=== PATIENT | male | born 1950 | race Caucasian/White ===

== ENCOUNTER 2016-12-08 06:02 | Day surgery (SDC) | payer MEDICARE, OTHER ==
[~2016-12-08] VITALS: Ht 172.7 cm; Wt 65.0 kg
[~2016-12-08 06:02] MED LIST: AZIT250T89 PO; CEFD300C37 PO; FLUT9.9S NS; GUAI118L19 PO; LACT1CAP24 PO; LORA-702 PO
[2016-12-08 07:23] VITALS: BP 103/65
[2016-12-08] MEDS ORDERED: SODIUM CHLORIDE 0.9% 1,000 ML IV SCH (07:25)
[2016-12-08] MEDS ORDERED: FENTANYL PF 100 MCG/2ML ONE (07:33)
[2016-12-08] MEDS ORDERED: MIDAZOLAM 1 MG/ML, 5ML ONE (07:33)
[2016-12-08] MEDS ORDERED: NALOXONE 1 MG/ML, 2ML ONE (07:33)
[2016-12-08] MEDS ORDERED: FLUMAZENIL 0.1 MG/1 ML, 5ML ONE (07:34)
[2016-12-08 08:31] LABS: DIFF TOTAL CELLS COUNTED 100 CELL DIFF
[2016-12-08 09:54] LABS: ANISOCYTOSIS 1+; VERIFY COUNTS? YES
== END 2016-12-08 09:40 | disposition home or self-care (01) ==
LOC: OUT 06:02
PROVIDERS: ATTEND Internal Medicine Hematology & Oncology
DX: D46.4 Refractory anemia, unspecified (principal)
CPT/HCPCS: 36415; 38221; 77012; 85025; 85097; 88237; 88264; 88280; 88305; 88311; 88313; 99156; 99157; G0364; J2250; J3010; J7030; J2310

== ENCOUNTER → 2017-08-23 | Outpatient (CLI) | payer MEDICARE, OTHER | END | disposition home or self-care (01) | LOC: CARD 15:46 | PROVIDERS: ATTEND Internal Medicine Hematology & Oncology | DX: D64.9 Anemia, unspecified (principal) | CPT/HCPCS: 94642 ==

== ENCOUNTER → 2017-09-20 | Outpatient (CLI) | payer MEDICARE, OTHER ==
[~2017-09-20] MED LIST changes: +PENTAMIDINE 300 MG ONE
== END | disposition home or self-care (01) ==
LOC: CARD 12:26
PROVIDERS: ATTEND Internal Medicine Hematology & Oncology
DX: D46.9 Myelodysplastic syndrome, unspecified (principal)
CPT/HCPCS: 94642

== ENCOUNTER → 2017-10-18 | Outpatient (CLI) | payer MEDICARE, OTHER | END | disposition home or self-care (01) | LOC: CARD 12:15 | PROVIDERS: ATTEND Internal Medicine Hematology & Oncology | DX: D46.9 Myelodysplastic syndrome, unspecified (principal) | CPT/HCPCS: 94642 ==

== ENCOUNTER → 2017-11-20 | Outpatient (CLI) | payer MEDICARE, OTHER | LOC: CARD 12:49 | PROVIDERS: ATTEND Internal Medicine Hematology & Oncology | DX: D46.9 Myelodysplastic syndrome, unspecified (principal) | CPT/HCPCS: 94642 ==

== ENCOUNTER → 2017-12-19 | Outpatient (CLI) | payer MEDICARE, OTHER ==
[~2017-12-19] MED LIST changes: +ACYC800T4 PO; +AZEL137S4 NAS; +GUAI-103 PO; +MULT-516 PO; +SORA200T PO; +VITAMIN C PO; +VITAMIN D PO; +VORI200T2 PO
== END | disposition home or self-care (01) ==
LOC: CARD 12:48
PROVIDERS: ATTEND Internal Medicine Hematology & Oncology
DX: D46.9 Myelodysplastic syndrome, unspecified (principal); J18.9 Pneumonia, unspecified organism; J20.9 Acute bronchitis, unspecified; J47.9 Bronchiectasis, uncomplicated; R06.02 Shortness of breath
CPT/HCPCS: 94642

== ENCOUNTER → 2018-01-17 | Outpatient (CLI) | payer MEDICARE, OTHER ==
[~2018-01-17] MED LIST changes: -AZEL137S4 NAS; -GUAI-103 PO; -MULT-516 PO; -VITAMIN C PO; -VITAMIN D PO
== END | disposition home or self-care (01) ==
LOC: CARD 12:51
PROVIDERS: ATTEND Internal Medicine Hematology & Oncology
DX: D46.9 Myelodysplastic syndrome, unspecified (principal)
CPT/HCPCS: 94642

== ENCOUNTER → 2018-01-29 | Outpatient (CLI) | payer MEDICARE, OTHER ==
[~2018-01-29] MED LIST changes: -PENTAMIDINE 300 MG ONE
== END | disposition home or self-care (01) ==
LOC: RAD 12:47
PROVIDERS: ATTEND Internal Medicine Critical Care Medicine
DX: J98.11 Atelectasis (principal); J47.9 Bronchiectasis, uncomplicated; R91.8 Other nonspecific abnormal finding of lung field; R06.02 Shortness of breath
CPT/HCPCS: 71250

== ENCOUNTER 2018-02-06 08:05 | Day surgery (SDC) | payer MEDICARE, OTHER ==
[2018-02-05 09:46] LABS: BASOPHILS # (AUTO) 0.01 x10^3/uL (0-0.1); BASOPHILS % (AUTO) 0 % (0-1); EOSINOPHILS % (AUTO) 6 % (1-7); LYMPHOCYTES % (AUTO) 8 % (22-44); MD NO; MEAN CORPUSCULAR HGB CONC 33.6 g/dL (33.2-36.2); MEAN CORPUSCULAR VOLUME 101.1 fL (81-97); MEAN PLATELET VOLUME 8.5 fL (7.4-10.4); MONOCYTES % (AUTO) 11 % (2-9); NEUTROPHILS # (AUTO) 3.51 x10^3/uL (1.8-6.8); NEUTROPHILS % (AUTO) 74 % (42-75); PLATELET COUNT 120 x10^3/uL (130-400); RED BLOOD COUNT 3.55 x10^6/uL (4.38-5.82); RED CELL DISTRIBUTION WIDTH 16.8 % (9.4-14.8)
[2018-02-05 09:54] LABS: INTERNATIONAL NORMALIZED RATIO 0.92 (0.93-1.1); PROTHROMBIN TIME 9.6 Seconds (9.6-11.5)
[~2018-02-06] VITALS: Ht 171.4 cm; Wt 62.4 kg
[~2018-02-06 08:05] MED LIST changes: +AZEL137S4 NAS; +GUAI-103 PO; +LIDOCAINE 4% TOPICAL SOLUTION 50 ML ONE; +LIDOCAINE GEL 2%, 5ML ONE; +MULT-516 PO; +VITAMIN C PO; +VITAMIN D PO
[2018-02-06 08:50] VITALS: BP 101/66
[2018-02-06] MEDS ORDERED: SODIUM CHLORIDE 0.9% 1,000 ML IV SCH (08:50)
[2018-02-06] MEDS ORDERED: MIDAZOLAM 1 MG/ML, 5ML ONE ×2 (09:27)
[2018-02-06] MEDS ORDERED: FENTANYL PF 100 MCG/2ML ONE (09:27)
== END 2018-02-06 13:37 ==
LOC: OUT 08:05
PROVIDERS: ATTEND Internal Medicine Critical Care Medicine
DX: J18.9 Pneumonia, unspecified organism (principal); J47.9 Bronchiectasis, uncomplicated; K21.0 Gastro-esophageal reflux disease with esophagitis
CPT/HCPCS: 31623; 31624; 36415; 85025; 85610; 85730; 87015; 87070; 87077; 87102; 87116; 87186; 87205; 87206; 88104; 88108; 88112; 88312; 93005; 99152; 99153; J2250; J3010; J7030

== ENCOUNTER → 2018-02-18 | Outpatient (CLI) | payer MEDICARE, OTHER ==
[~2018-02-18] MED LIST changes: -LIDOCAINE 4% TOPICAL SOLUTION 50 ML ONE; -LIDOCAINE GEL 2%, 5ML ONE
== END | disposition home or self-care (01) ==
LOC: CARD 12:49
PROVIDERS: ATTEND Internal Medicine Hematology & Oncology
DX: D64.9 Anemia, unspecified (principal); K21.9 Gastro-esophageal reflux disease without esophagitis
CPT/HCPCS: 94642

== ENCOUNTER → 2018-03-19 | Outpatient (CLI) | payer MEDICARE, OTHER | END | disposition home or self-care (01) | LOC: CFH 10:37 | PROVIDERS: ATTEND Internal Medicine Critical Care Medicine | DX: R91.8 Other nonspecific abnormal finding of lung field (principal); Z88.8 Allergy status to other drugs, medicaments and biological substances | CPT/HCPCS: 71250 ==

== ENCOUNTER → 2018-03-21 | Outpatient (CLI) | payer MEDICARE, OTHER ==
[~2018-03-21] MED LIST changes: +PENTAMIDINE 300 MG IVPB ONE
== END | disposition home or self-care (01) ==
LOC: CARD 12:03
PROVIDERS: ATTEND Internal Medicine Hematology & Oncology
DX: D46.9 Myelodysplastic syndrome, unspecified (principal); Z87.891 Personal history of nicotine dependence; J18.9 Pneumonia, unspecified organism; J20.9 Acute bronchitis, unspecified
CPT/HCPCS: 94642

== ENCOUNTER → 2018-04-18 | Outpatient (CLI) | payer MEDICARE, OTHER ==
[~2018-04-18] MED LIST changes: -PENTAMIDINE 300 MG IVPB ONE
== END | disposition home or self-care (01) ==
LOC: CARD 13:15
PROVIDERS: ATTEND Internal Medicine Hematology & Oncology
DX: D46.9 Myelodysplastic syndrome, unspecified (principal)
CPT/HCPCS: 94642

== ENCOUNTER 2018-09-22 09:26 | Inpatient (IN) | payer MEDICARE ==
[~2018-09-22] VITALS: Ht 172.7 cm; Wt 61.4 kg
[~2018-09-22 09:26] MED LIST changes: +FURO-93 PO; +POTA10CA PO; +PRED20TA PO; +[UNRECOGNIZED DRUG - OTHER] HOMEMEDPO
--- NOTE | 2018-09-22 10:30 | NUR ---
[employer]ECT[employer] IN PLACE
[2018-09-22] MEDS ORDERED: CEFTRIAXONE PMX 1GM/50ML 50 ML IV ONE (11:00)
[2018-09-22] MEDS ORDERED: AZITHROMYCIN 500 MG in SODIUM CHLORIDE 0.9% 250 ML IV ONE (11:00)
[2018-09-22 11:02] LABS: MICROSCOPIC AUTO
[2018-09-22 11:05] LABS: CULTURE INDICATED? NO
[2018-09-22 11:05] LABS: ALANINE AMINOTRANSFERASE 226 U/L (12-78); ALBUMIN 2.1 g/dL (3.4-5.0); ANION GAP 6 mmol/L (5-15); BASOPHILS % (AUTO) 0 % (0-1); CALCIUM 8.3 mg/dL (8.5-10.1); CHLORIDE 96 mmol/L (98-107); CREATININE 0.65 mg/dL (0.7-1.3); EOSINOPHILS # (AUTO) 0.03 x10^3/uL (0-0.4); EOSINOPHILS % (AUTO) 0 % (1-7); LYMPHOCYTES # (AUTO) 0.21 x10^3/uL (1-3.4); LYMPHOCYTES % (AUTO) 1 % (22-44); MD SCAN; MEAN CORPUSCULAR HEMOGLOBIN 32.2 pg (27.5-34.5); MEAN CORPUSCULAR HGB CONC 34.1 g/dL (33.2-36.2); MEAN CORPUSCULAR VOLUME 94.2 fL (81-97); MEAN PLATELET VOLUME 8.2 fL (7.4-10.4); MONOCYTES # (AUTO) 0.01 x10^3/uL (0.2-0.8); MONOCYTES % (AUTO) 0 % (2-9); NEUTROPHILS % (AUTO) 98 % (42-75); PLATELET COUNT 259 x10^3/uL (130-400); RED BLOOD COUNT 3.54 x10^6/uL (4.38-5.82); RED CELL DISTRIBUTION WIDTH 16.6 % (9.4-14.8)
[2018-09-22] MEDS ORDERED: CEFTRIAXONE PMX 1GM/50ML 50 ML ONE (11:06)
[2018-09-22 11:07] LABS: ALKALINE PHOSPHATASE 87 U/L (45-117); BILIRUBIN,TOTAL 0.5 mg/dL (0.2-1.0); TOTAL PROTEIN 5.7 g/dL (6.4-8.2)
[2018-09-22 11:13] LABS: RAPID INFLUENZA A Negative (Negative); RAPID INFLUENZA B Negative (Negative)
[2018-09-22] MEDS ORDERED: SODIUM CHLORIDE FLUSH 10ML SYR IVF PRN (12:30)
--- NOTE | 2018-09-22 13:02 | NUR ---
Report to LUISA Vitale.
[2018-09-22] MEDS ORDERED: SODIUM CHLORIDE 0.9% 2,000 ML IV SCH (15:06)
[2018-09-22 15:15] VITALS: BP 132/68
[2018-09-22] MEDS ORDERED: VANCOMYCIN PER PHARMACY MC PRN (15:30)
[2018-09-22] MEDS ORDERED: PHARMACOKINETIC MONITORING MC PRN (16:30)
[2018-09-22] MEDS ORDERED: VANCOMYCIN 1,300 MG in SODIUM CHLORIDE 0.9% 250 ML IV SCH (17:00)
[2018-09-22] MEDS: SODIUM CHLORIDE 0.9% 1,000 ML IV SCH (17:33)
[2018-09-22 18:55] VITALS: BP 122/77
[2018-09-22] MEDS: TEMPLATE NON-FORMULARY MED. (Azelastine Hcl Nasal 1 SPRAY) NAS SCH (19:59)
[2018-09-22] MEDS: CEFEPIME 2 GM in DEXTROSE 5% 100 ML IV SCH (19:59)
[2018-09-22] MEDS: ENOXAPARIN 40 MG/0.4 ML SQ SCH (20:00)
[2018-09-22] MEDS: FAMOTIDINE 20 MG TABLET PO SCH (20:00)
[2018-09-23 02:03] VITALS: BP 130/71
[2018-09-23] MEDS: CEFEPIME 2 GM in DEXTROSE 5% 100 ML IV SCH ×3 (03:38→19:55)
[2018-09-23] MEDS: SODIUM CHLORIDE 0.9% 1,000 ML IV SCH ×2 (03:40→15:24)
[2018-09-23 07:29] LABS: MEAN CORPUSCULAR HEMOGLOBIN 30.7 pg (27.5-34.5); MEAN CORPUSCULAR HGB CONC 32.8 g/dL (33.2-36.2); MEAN CORPUSCULAR VOLUME 93.8 fL (81-97); MEAN PLATELET VOLUME 7.9 fL (7.4-10.4); PLATELET COUNT 239 x10^3/uL (130-400); RED CELL DISTRIBUTION WIDTH 17.1 % (9.4-14.8)
[2018-09-23 07:34] LABS: ALANINE AMINOTRANSFERASE 174 U/L (12-78); ALBUMIN 1.9 g/dL (3.4-5.0); ANION GAP 7 mmol/L (5-15); CHLORIDE 100 mmol/L (98-107); CREATININE 0.69 mg/dL (0.7-1.3)
[2018-09-23 07:36] LABS: ALKALINE PHOSPHATASE 74 U/L (45-117); BILIRUBIN,TOTAL 0.6 mg/dL (0.2-1.0); TOTAL PROTEIN 5.4 g/dL (6.4-8.2)
[2018-09-23] MEDS: TEMPLATE NON-FORMULARY MED. (Azelastine Hcl Nasal 1 SPRAY) NAS SCH ×2 (08:12→19:55)
[2018-09-23] MEDS: POTASSIUM CHLORIDE 10 MEQ TABLET.ER PO SCH (08:12)
[2018-09-23] MEDS: FAMOTIDINE 20 MG TABLET PO SCH ×2 (08:12→19:56)
[2018-09-23] MEDS: FLUTICASONE NASAL SPRAY 16GM NAS SCH (08:12)
[2018-09-23 08:17] LABS: BASOPHILS # (AUTO) 0.02 x10^3/uL (0-0.1); BASOPHILS % (AUTO) 0 % (0-1); EOSINOPHILS # (AUTO) 0.03 x10^3/uL (0-0.4); EOSINOPHILS % (AUTO) 0 % (1-7); LYMPHOCYTES # (AUTO) 0.41 x10^3/uL (1-3.4); LYMPHOCYTES % (AUTO) 3 % (22-44); MD SCAN; MONOCYTES # (AUTO) 0.07 x10^3/uL (0.2-0.8); MONOCYTES % (AUTO) 1 % (2-9); NEUTROPHILS # (AUTO) 13.04 x10^3/uL (1.8-6.8); NEUTROPHILS % (AUTO) 96 % (42-75)
[2018-09-23 09:26] VITALS: BP 105/66
[2018-09-23] MEDS ORDERED: AZITHROMYCIN 500 MG in SODIUM CHLORIDE 0.9% 250 ML IV SCH (12:00)
[2018-09-23] MEDS ORDERED: SODIUM CHLORIDE 0.9% 1,000 ML IV SCH (15:06)
[2018-09-23] MEDS: VANCOMYCIN 1,300 MG in SODIUM CHLORIDE 0.9% 250 ML IV SCH (15:24)
[2018-09-23 15:48] VITALS: BP 111/70
[2018-09-23 19:40] VITALS: BP 123/71
[2018-09-23] MEDS: ENOXAPARIN 40 MG/0.4 ML SQ SCH (19:56)
[2018-09-24] MEDS: SODIUM CHLORIDE 0.9% 1,000 ML IV SCH ×2 (01:00→11:17)
[2018-09-24 01:38] VITALS: BP 128/78
[2018-09-24] MEDS: CEFEPIME 2 GM in DEXTROSE 5% 100 ML IV SCH (03:30)
[2018-09-24 05:54] LABS: BASOPHILS # (AUTO) 0.01 x10^3/uL (0-0.1); BASOPHILS % (AUTO) 0 % (0-1); EOSINOPHILS # (AUTO) 0.05 x10^3/uL (0-0.4); EOSINOPHILS % (AUTO) 1 % (1-7); LYMPHOCYTES # (AUTO) 0.42 x10^3/uL (1-3.4); LYMPHOCYTES % (AUTO) 5 % (22-44); MD NO; MEAN CORPUSCULAR HEMOGLOBIN 32.3 pg (27.5-34.5); MEAN CORPUSCULAR VOLUME 95.1 fL (81-97); MEAN PLATELET VOLUME 8.3 fL (7.4-10.4); MONOCYTES # (AUTO) 0.09 x10^3/uL (0.2-0.8); MONOCYTES % (AUTO) 1 % (2-9); NEUTROPHILS # (AUTO) 8.75 x10^3/uL (1.8-6.8); NEUTROPHILS % (AUTO) 94 % (42-75); PLATELET COUNT 179 x10^3/uL (130-400); RED BLOOD COUNT 3.27 x10^6/uL (4.38-5.82); RED CELL DISTRIBUTION WIDTH 16.5 % (9.4-14.8)
[2018-09-24 06:04] LABS: CHLORIDE 104 mmol/L (98-107)
[2018-09-24 06:16] LABS: ALANINE AMINOTRANSFERASE 175 U/L (12-78); ALBUMIN 1.7 g/dL (3.4-5.0); ALKALINE PHOSPHATASE 72 U/L (45-117); ANION GAP 6 mmol/L (5-15); BILIRUBIN,TOTAL 0.5 mg/dL (0.2-1.0); CALCIUM 7.9 mg/dL (8.5-10.1); CREATININE 0.62 mg/dL (0.7-1.3); TOTAL PROTEIN 5.3 g/dL (6.4-8.2)
[2018-09-24] MEDS ORDERED: predniSONE 50MG TABLET ONE (08:40)
[2018-09-24] MEDS: POTASSIUM CHLORIDE 10 MEQ TABLET.ER PO SCH (08:46)
[2018-09-24] MEDS: FLUTICASONE NASAL SPRAY 16GM NAS SCH (08:47)
[2018-09-24] MEDS: TEMPLATE NON-FORMULARY MED. (Azelastine Hcl Nasal 1 SPRAY) NAS SCH (08:47)
[2018-09-24] MEDS: FAMOTIDINE 20 MG TABLET PO SCH (08:47)
[2018-09-24 08:48] VITALS: BP 147/69
[2018-09-24] MEDS: VANCOMYCIN 1,300 MG in SODIUM CHLORIDE 0.9% 250 ML IV SCH (09:44)
[2018-09-24] MEDS ORDERED: LEVO750T26 PO (11:00)
== END 2018-09-24 12:31 | disposition home health service (06) | DRG 871 ==
LOC: ED 10:59 → EDIP 12:29 → 4NOR 13:10 → 3NW 13:49
PROVIDERS: ADMIT Hospitalist; ATTEND Hospitalist
DX: A41.9 Sepsis, unspecified organism (principal); J15.6 Pneumonia due to other Gram-negative bacteria; C92.00 Acute myeloblastic leukemia, not having achieved remission; Z94.81 Bone marrow transplant status; E87.1 Hypo-osmolality and hyponatremia; D89.813 Graft-versus-host disease, unspecified; M62.82 Rhabdomyolysis; R65.20 Severe sepsis without septic shock; D63.8 Anemia in other chronic diseases classified elsewhere; E86.1 Hypovolemia; M60.9 Myositis, unspecified; Z79.52 Long term (current) use of systemic steroids; Z80.6 Family history of leukemia; Z86.14 Personal history of Methicillin resistant Staphylococcus aureus infection; Z91.013 Allergy to seafood
CPT/HCPCS: 36415; 71046; 71250; 80053; 81001; 82550; 83605; 84145; 84443; 85025; 87040; 87070; 87081; 87205; 87400; 93005; 96365; 96375; G0378; J0456; J0696; J3370; J7030; J7050; J7512

== ENCOUNTER → 2018-10-24 | Outpatient (CLI) | payer MEDICARE ==
[~2018-10-24] MED LIST changes: +LEVO750T26 PO; +OMNIPAQUE 350 MG/ML, 75ML BOTTLE ONE
== END | disposition home or self-care (01) ==
LOC: CFH 10:09
PROVIDERS: ATTEND Family Medicine
DX: M85.88 Other specified disorders of bone density and structure, other site (principal); D89.813 Graft-versus-host disease, unspecified; J18.9 Pneumonia, unspecified organism; Z85.6 Personal history of leukemia
CPT/HCPCS: 71260; 77080; Q9967

== ENCOUNTER → 2021-02-02 | Outpatient (CLI) | payer MEDICARE ==
[~2021-02-02] MED LIST changes: +OMNIPAQUE 350 MG/ML, 100ML BOTTLE ONE; -OMNIPAQUE 350 MG/ML, 75ML BOTTLE ONE; -VORI200T2 PO; +VORI200T3 PO
== END | disposition home or self-care (01) ==
LOC: CFH 15:19
PROVIDERS: ATTEND Family Medicine
DX: R59.1 Generalized enlarged lymph nodes (principal)
CPT/HCPCS: 70490; Q9967